=== PATIENT | female | born 1935 | race Two or more races ===

== ENCOUNTER 2018-04-26 15:44 | Outpatient (CLI) | payer OTHER ==
[~2018-04-26 15:44] MED LIST: ARICEPT5 MG; ATENOLOL-CHLORT1 TA2; HUMULIN N100 U/ML; XANAX2 MG; ZOLOFT50 MG
== END 2018-04-26 15:50 | disposition home or self-care (01) ==
LOC: RAD 501 15:44
DX: M25.561 Pain in right knee (principal); M25.562 Pain in left knee

== ENCOUNTER 2019-03-01 21:06 | Inpatient (IN) | payer OTHER ==
[~2019-03-01] VITALS: Ht 147.3 cm; Wt 97.5 kg
[2019-03-02] MEDS ORDERED: ATENOLOL-CHLOR1 EACH PO (15:12)
[2019-03-02] MEDS ORDERED: CLONAZEPAM2 MG PO (15:12)
[2019-03-02] MEDS ORDERED: DITROPAN5 MG PO (15:13)
[2019-03-02] MEDS ORDERED: LEVOTHYROXINE50 MCG PO (15:13)
[2019-03-02] MEDS ORDERED: FUROSEMIDE20 MG PO (15:13)
[2019-03-02] MEDS ORDERED: GABAPENTIN100 MG PO (15:14)
[2019-03-02] MEDS ORDERED: CENTRUM SILVER1 EAC2 PO (15:15)
[2019-03-02] MEDS ORDERED: GABAPENTIN400 MG PO (15:15)
[2019-03-02] MEDS ORDERED: DONEPEZIL HCL23 MG PO (15:15)
[2019-03-02] MEDS ORDERED: PRIMIDONE50 MG PO (15:18)
[2019-03-02] MEDS ORDERED: CARBIDOPA-LEVO1 EA10 PO (15:18)
[2019-03-02] MEDS ORDERED: RANITIDINE HCL300 MG PO (15:19)
[2019-03-06] MEDS ORDERED: DONEPEZIL HCL23 MG PO (14:21)
[2019-03-06] MEDS ORDERED: LIPITOR20 MG PO (14:22)
[2019-03-06] MEDS ORDERED: ATENOLOL-CHLOR1 EACH PO (14:22)
[2019-03-06] MEDS ORDERED: SINEMET CR 25-1 EACH PO (14:22)
[2019-03-06] MEDS ORDERED: MYSOLINE50 MG PO (14:24)
[2019-03-06] MEDS ORDERED: CYMBALTA60 MG PO (14:24)
[2019-03-06] MEDS ORDERED: LACTULOSE20 GM/30 M PO (14:25)
[2019-03-06] MEDS ORDERED: ACIDOPHILUS-PE1 EAC2 PO (14:25)
[2019-03-06] MEDS ORDERED: RANITIDINE HCL300 MG PO (14:25)
[2019-03-06] MEDS ORDERED: LEVOTHYROXINE50 MCG PO (14:26)
[2019-03-06] MEDS ORDERED: DITROPAN5 MG PO (14:26)
[2019-03-06] MEDS ORDERED: CLONAZEPAM0.5 MG PO (14:27)
[2019-03-06] MEDS ORDERED: DUI500 PO (14:37)
== END 2019-03-06 19:04 | DRG 190 ==
LOC: ER 21:06 → MEDJ 03-02 11:30 → SEC-K 03-02 11:30 → MEDJ 03-02 14:46
PROVIDERS: ADMIT Internal Medicine
PROC: 5A09457 Assistance with Respiratory Ventilation, 24-96 Consecutive Hours, Continuous Positive Airway Pressure (ICD-10-PCS; principal; 2019-03-02)
PROC: 4A033R1 Measurement of Arterial Saturation, Peripheral, Percutaneous Approach (ICD-10-PCS; 2019-03-02)
PROC: B246ZZZ Ultrasonography of Right and Left Heart (ICD-10-PCS; 2019-03-02)
PROC: 3E0F7GC Introduction of Other Therapeutic Substance into Respiratory Tract, Via Natural or Artificial Opening (ICD-10-PCS; 2019-03-02)
PROC: BW28ZZZ Computerized Tomography (CT Scan) of Head (ICD-10-PCS; 2019-03-02)
PROC: 0T9B70Z Drainage of Bladder with Drainage Device, Via Natural or Artificial Opening (ICD-10-PCS; 2019-03-02)
PROC: 4A12X4Z Monitoring of Cardiac Electrical Activity, External Approach (ICD-10-PCS; 2019-03-02)
DX: J44.1 Chronic obstructive pulmonary disease with (acute) exacerbation (principal); J80 Acute respiratory distress syndrome; N39.0 Urinary tract infection, site not specified; Z99.11 Dependence on respirator [ventilator] status; E87.4 Mixed disorder of acid-base balance; G72.81 Critical illness myopathy; G47.31 Primary central sleep apnea; E66.01 Morbid (severe) obesity due to excess calories; D72.828 Other elevated white blood cell count; G20 Parkinson's disease; E11.21 Type 2 diabetes mellitus with diabetic nephropathy; K29.70 Gastritis, unspecified, without bleeding; I34.0 Nonrheumatic mitral (valve) insufficiency; F02.80 Dementia in other diseases classified elsewhere, unspecified severity, without behavioral disturbance, psychotic disturbance, mood disturbance, and anxiety; Z79.01 Long term (current) use of anticoagulants; Z88.6 Allergy status to analgesic agent; Z79.4 Long term (current) use of insulin; Z99.81 Dependence on supplemental oxygen; N39.8 Other specified disorders of urinary system

== ENCOUNTER 2020-04-05 21:31 | Emergency (ER) | payer OTHER ==
[~2020-04-05] VITALS: Ht 157.5 cm; Wt 122.5 kg
[~2020-04-05 21:31] MED LIST changes: +ACIDOPHILUS-PE1 EAC2 PO; +ATENOLOL-CHLOR1 EACH PO; +CARBIDOPA-LEVO1 EA10 PO; +CENTRUM SILVER1 EAC2 PO; +CLONAZEPAM0.5 MG PO; +CLONAZEPAM2 MG PO; +CYMBALTA60 MG PO; +DITROPAN5 MG PO; +DONEPEZIL HCL23 MG PO; +DUI500 PO; +FUROSEMIDE20 MG PO; +GABAPENTIN100 MG PO; +GABAPENTIN400 MG PO; +LACTULOSE20 GM/30 M PO; +LEVOTHYROXINE50 MCG PO; +LIPITOR20 MG PO; +MYSOLINE50 MG PO; +PRIMIDONE50 MG PO; +RANITIDINE HCL300 MG PO; +SINEMET CR 25-1 EACH PO
[2020-04-05] MEDS ORDERED: AUGMENTIN600 MG/5 M (21:46)
[2020-04-05] MEDS ORDERED: RESTORIL30 M1 (21:47)
[2020-04-05] MEDS ORDERED: NAPROXEN SODIU220 M1 (21:47)
[2020-04-06] MEDS ORDERED: MACROBID 100 M100 MG PO (02:47)
== END 2020-04-06 08:06 | disposition home or self-care (01) ==
LOC: ER 21:31
DX: N39.0 Urinary tract infection, site not specified (principal); T50.995A Adverse effect of other drugs, medicaments and biological substances, initial encounter

== ENCOUNTER → 2020-04-10 | Emergency (ER) | payer OTHER ==
[~2020-04-10] VITALS: Ht 149.9 cm; Wt 86.2 kg
[~2020-04-10] MED LIST changes: +AUGMENTIN600 MG/5 M; +MACROBID 100 M100 MG PO; +NAPROXEN SODIU220 M1; +RESTORIL30 M1
== END | disposition home or self-care (01) ==
LOC: ER 08:18
DX: S06.2X0A Diffuse traumatic brain injury without loss of consciousness, initial encounter (principal); S10.83XA Contusion of other specified part of neck, initial encounter; S01.02XA Laceration with foreign body of scalp, initial encounter; W18.09XA Striking against other object with subsequent fall, initial encounter; Y93.89 Activity, other specified; Y92.098 Other place in other non-institutional residence as the place of occurrence of the external cause; Y99.8 Other external cause status; Z20.828 Contact with and (suspected) exposure to other viral communicable diseases